=== PATIENT | female | born 1965 | race Caucasian/White ===

== ENCOUNTER → 2017-03-13 | Outpatient (CLI) | payer OTHER | LOC: BRMIMAGING 11:11 | PROVIDERS: ATTEND Family Medicine | DX: Z12.31 Encounter for screening mammogram for malignant neoplasm of breast (principal) | CPT/HCPCS: G0202 ==

== ENCOUNTER → 2017-03-21 | Outpatient (CLI) | payer OTHER | LOC: BRMIMAGING 09:40 | PROVIDERS: ATTEND Family Medicine | DX: N60.02 Solitary cyst of left breast (principal) | CPT/HCPCS: 76641-PO; G0206 ==

== ENCOUNTER → 2018-03-16 | Outpatient (CLI) | payer OTHER | LOC: BRMIMAGING 10:50 | PROVIDERS: ATTEND Family Medicine | DX: Z12.31 Encounter for screening mammogram for malignant neoplasm of breast (principal) ==